=== PATIENT | female | born 1990 | race Caucasian/White ===

== ENCOUNTER 2022-09-06 19:23 | Emergency (ER) | payer OTHER, SELFPAY ==
[2022-09-06 20:33] LABS: Hemoglobin 13.2 g/dL (12.0-16.0); Mean Corpuscular HGB CONC 31.3 g/dL (32.0-36.0); Mean Corpuscular Hemoglobin 25.1 pg (27.0-31.0); Mean Corpuscular Volume 80.3 fl (78.0-98.0); Mean Platelet Volume 6.4 fL (7.4-10.4); Platelet Count 430 10x3/uL (130-400); RBC Distribution Width 12.4 % (11.5-14.5); Red Blood Cell (RBC) Count 5.24 mill/uL (4.20-5.40); White Blood Cell (WBC) Count 5.9 10x3/uL (4.8-10.8)
[2022-09-06 20:40] LABS: #Basophils 0.1 thou/uL (0.0-0.2); #Eosinphils 0.2 thou/uL (0.0-0.7); #Monocytes 0.4 thou/uL (0.11-0.59); #Neutrophils 3.3 thou/uL (1.40-6.50); %Basophils 1.2 % (0.0-1.0); %Eosinophils 2.9 % (0.0-10.0); %Lymphocytes 32.8 % (21.0-51.0); %Monocytes 7.3 % (0.0-10.0); %Neutrophils 55.8 % (42.0-75.0)
[2022-09-06 20:41] LABS: Platelet Morphology Comment Appears Increased; Toxic Granulation SLIGHT; Vacuoles SLIGHT
[2022-09-06 20:43] LABS: Microcytosis SLIGHT = 6-15 cells (100X) (0-5/hpf); Stomatocytes SLIGHT = 2-5 cells (100X) (0-1/hpf)
[2022-09-06 20:44] LABS: ALT (SGPT) 9 U/L (8-55); AST (SGOT) 9 U/L (5-34); Alkaline Phosphatase 106 U/L (40-110); Anion Gap 17 mmol/L (10-20); BUN (Urea Nitrogen) 4 mg/dL (7.0-18.7); Bilirubin, Total 0.2 mg/dL (0.2-1.2); Calc. Creatinine Clearance 0 mL/min (70-130); Calcium 9.7 mg/dL (7.8-10.44); Carbon Dioxide 27 mmol/L (22-29); Chloride 95 mmol/L (98-107); Estimated GFR 107; Globulin 4.9 g/dL (2.4-3.5); Protein, Total 8.9 g/dL (6.0-8.3); Sodium 135 mmol/L (136-145)
[2022-09-06] MEDS ORDERED: Clindamycin/D5W 900 mg/50 ml Premix Bag ONE (20:57)
[2022-09-06 21:05] LABS: Glucose 483 mg/dL (70-105)
[2022-09-06 21:06] LABS: Pregnancy Test - Urine (BHCG) Negative (Negative); Pregu Control Background? CLEAR/WHITE (CLR/WHITE); Pregu Control Bar Appear? YES (CONTROL BAR)
[2022-09-06 21:11] LABS: Clarity Clear (Clear)
[2022-09-06 21:12] LABS: Glucose, Urine (Dipstick) >=1000 mg/dL (Negative); Ketone, Urine Negative (Negative); Leukocyte Negative (Negative); Nitrite Negative (Negative); Protein, Urine (Dipstick) Negative (Neg-Trace); Urobilinogen 0.2 mg/dL (Less than 2)
[2022-09-06 21:13] LABS: Bacteria/HPF Rare-Few HPF (None Seen); Bilirubin Negative (Negative); Blood, Urine Moderate (Negative); Mucous/LPF None Seen LPF (<2+); Squamous Epithelial 0-3 HPF (0-3); WBC/HPF 0-3 HPF (0-3)
[2022-09-06 21:56] LABS: CO2 Tension (PvCO2) 42.6 mmHg (42.0-51.0); Calcium, Ionized 1.06 mmol/L (1.15-1.33); Chloride 99 mmol/L (98-107); Hemoglobin - Calc 13.8 g/dL (12.0-16.0); Potassium 3.8 mmol/L (3.5-5.1); Sodium 137 mmol/L (138-145); T. Carbon Dioxide 28.3 mmol/L (22.0-28.0); vO2 Saturation-calc 45.9 % (60.0-85.0)
[2022-09-07 01:11] LABS: Glucose 359 mg/dL (70-105)
[2022-09-07] MEDS ORDERED: Morphine 2 MG/ML VIAL ONE (01:31)
[2022-09-07] MEDS ORDERED: Acetaminophen 500 MG TAB ONE (01:39)
[2022-09-07 16:05] LABS: Hemoglobin A1c Greater than 14.0 % (4.0-6.0)
== END 2022-09-07 02:00 | disposition home or self-care (01) ==
LOC: NAV ERS 19:23
DX: L03.311 Cellulitis of abdominal wall (principal); M06.9 Rheumatoid arthritis, unspecified; E11.9 Type 2 diabetes mellitus without complications
CPT/HCPCS: 36415; 74176; 80053; 81003; 81015; 81025; 82010; 82330; 82803; 82947; 83036; 83605; 85025; 87040; 87070; 87077; 87205; 96361; 96365; J2272; J3490